=== PATIENT | female | born 1935 | race African-American/Black ===

== ENCOUNTER 2021-03-18 12:57 | Emergency (ER) | payer OTHER ==
[~2021-03-18] VITALS: Ht 162.6 cm; Wt 82.0 kg
[~2021-03-18 12:57] MED LIST: ATOR40TA70 PO; FAMO40TA7 PO; HUMULIN N SQ; HUMULIN R; HYDR-523 PO; LOSA25TA26 PO; NORT50CA PO
[2021-03-18 13:42] LABS: HEMATOCRIT. 37.2 % (36.0-48.0); HEMOGLOBIN. 12.9 g/dL (12.0-16.0); MEAN CORPUSCULAR HEMOGLOBIN 31.9 pg (28.0-32.0); MEAN PLATELET VOLUME 9.9 fl (7.4-10.4); PLATELET 143 x1000/uL (130-400); RED BLOOD CELL COUNT 4.05 mill/uL (4.2-5.4); RED CELL DISTRIBUTION WIDTH 14.3 % (11.6-14.6)
[2021-03-18 13:44] LABS: CHLORIDE 113 mEq/L (98-107)
[2021-03-18] MEDS ORDERED: POTASSIUM CHLORIDE 20MEQ TABLET SR PO NR (14:30)
[2021-03-18 14:49] LABS: PLATELET ESTIMATE NORMAL
[2021-03-18 19:45] VITALS: BP 173/75
== END 2021-03-18 21:28 | disposition short-term general hospital (02) ==
LOC: ER 12:57
DX: E11.649 Type 2 diabetes mellitus with hypoglycemia without coma (principal); R55 Syncope and collapse; I10 Essential (primary) hypertension; Z89.512 Acquired absence of left leg below knee; Z95.0 Presence of cardiac pacemaker; Z79.4 Long term (current) use of insulin
CPT/HCPCS: 36415; 71045; 80053; 82962; 83880; 84484; 85025; 93005; 99285